=== PATIENT | female | born 1965 | race Caucasian/White ===

== ENCOUNTER 2017-01-10 20:31 | Emergency (ER) | payer MEDICARE, MEDICAID ==
--- NOTE | 2017-01-10 20:51 | ER Document Report ---
ED Medical Screen (RME) - General Stated Complaint: DIFFICULTY BREATHING Time seen by provider: 20:46 Mode of Arrival: Wheelchair Information source: Patient Notes: 51-year-old female presents to ED for a COPD exacerbation with shortness of breath. She says the shortness of breath started 6 or 7 hours ago. She states she's having hard time getting the air out she can get in fine. She states she takes symbicort, spireva, and daliresp for her COPD. A she's had COPD for 6 years. States she smokes 6 cigarettes a day. I have greeted and performed a rapid initial assessment of this patient. A comprehensive ED assessment and evaluation of the patient, analysis of test results and completion of medical decision making process will be conducted by an additional ED providers. TRAVEL OUTSIDE OF THE [place] IN LAST 30 DAYS: No - Related Data Allergies/Adverse Reactions: oxycodone HCl [From Percocet] Allergy (Severe, Verified 01/25/15 16:35) Anaphylaxis propoxyphene napsylate [From Darvocet-N 100] Allergy (Severe, Verified 01/25/15 16:35) Anaphylaxis Past Medical History - Past Medical History Cardiac Medical History: Reports: Hx Hypertension Denies: Hx Coronary Artery Disease, Hx DVT, Hx Heart Attack, Hx Pulmonary Embolism Pulmonary Medical History: Reports: Hx Asthma, Hx Bronchitis, Hx COPD Denies: Hx Pneumonia, Hx Tuberculosis Neurological Medical History: Denies: Hx Cerebrovascular Accident, Hx Seizures GI Medical History: Reports: Hx Gastritis, Hx Gastroesophageal Reflux Disease, Hx Hiatal Hernia Musculoskeltal Medical History: Denies Hx Arthritis, Reports Hx Musculoskeletal Trauma - AC joint avulsion fx Skin Medical History: Reports Hx MRSA Psychiatric Medical History: Reports: Hx Anxiety, Hx Bipolar Disorder, Hx Depression Traumatic Medical History: Reports: Hx Fractures Infectious Medical History: Reports: Hx MRSA Past Surgical History: Reports: Hx Breast Surgery - Breast augmentation, Hx Genitourinary Surgery - Monarc Sling, inter-stem device in bladder, Hx Hysterectomy, Hx Orthopedic Surgery - anterior cervical fusion c5/c6, Hx Tubal Ligation. Denies: Hx Pacemaker - Immunizations Hx Diphtheria, Pertussis, Tetanus Vaccination: Yes - unknown Physical Exam - Vital signs Vitals: Temp Pulse Resp BP Pulse Ox 98.5 F 111 H 18 123/71 97 01/10/17 20:40 01/10/17 20:40 01/10/17 20:40 01/10/17 20:40 01/10/17 20:40 Course - Vital Signs Vital signs: Temp Pulse Resp BP Pulse Ox 98.5 F 111 H 18 123/71 97 01/10/17 20:40 01/10/17 20:40 01/10/17 20:40 01/10/17 20:40 01/10/17 20:40
[2017-01-10] MEDS ORDERED: PREDNISONE 20 MG TABLET PO ONE (20:52)
[2017-01-10] MEDS ORDERED: IPRATROPIUM/ALBUTEROL 0.5-2.5 MG/3 ML AMPUL NEB ONE (20:52)
[2017-01-10] MEDS: ALBUTEROL SULFATE 0.083% NEB 2.5 MG/3 ML AMPUL NEB SCH ×2 (21:15→21:36)
--- NOTE | 2017-01-10 21:29 | ER Document Report ---
ED General - General Chief Complaint: Breathing Difficulty Stated Complaint: DIFFICULTY BREATHING Time seen by provider: 21:15 Mode of Arrival: Wheelchair Information source: Patient Notes: 51-year-old female with 7 hour history of shortness of breath dyspnea on exertion and nonproductive cough. Patient reports last episode of evening difficulty like this was about a year ago. She reports no associated fever, chills, chest pain, abdominal pain, back pain, or syncope. She reports she noted swelling in her legs for the past few days. She denies any history of heart problems. Physical Exam: General: Alert, appears well. HEENT: Normocephalic. Atraumatic. PERRLA. Extraocular movements intact. Oropharynx clear. Neck: Supple. Non-tender. Respiratory: Tachypnea with talking. Scattered wheezes bilaterally with diminished aeration throughout all lung quiroz no accessory muscle use Cardiovascular: Regular rate and rhythm. Abdominal: Normal Inspection. Soft, non-tender. No distension. Normal Bowel Sounds. Back: Non-tender. No deformity or step off. Extremities: Moves all four extremities. Upper extremities: Normal inspection. Non-tender. Normal color. Normal ROM. Normal temperature. Lower extremities: Normal inspection. Non-tender. No edema. Normal color. Normal ROM. Normal temperature. Neurological: Speech clear mentation normal moves all extremities well Psychological: Normal affect. Normal Mood. Skin: Warm. Dry. Normal color. TRAVEL OUTSIDE OF THE [place] IN LAST 30 DAYS: No - Related Data Allergies/Adverse Reactions: oxycodone HCl [From Percocet] Allergy (Severe, Verified 01/25/15 16:35) Anaphylaxis propoxyphene napsylate [From Darvocet-N 100] Allergy (Severe, Verified 01/25/15 16:35) Anaphylaxis Past Medical History - General Information source: Patient - Social History Smoking Status: Current Every Day Smoker Family History: CVA, Hypertension, Malignancy, Other - CHF Patient has suicidal ideation: No Patient has homicidal ideation: No - Past Medical History Cardiac Medical History: Reports: Hx Hypertension Denies: Hx Coronary Artery Disease, Hx DVT, Hx Heart Attack, Hx Pulmonary Embolism Pulmonary Medical History: Reports: Hx Asthma, Hx Bronchitis, Hx COPD Denies: Hx Pneumonia, Hx Tuberculosis Neurological Medical History: Denies: Hx Cerebrovascular Accident, Hx Seizures Renal/ Medical History: Denies: Hx Peritoneal Dialysis GI Medical History: Reports: Hx Gastritis, Hx Gastroesophageal Reflux Disease, Hx Hiatal Hernia Musculoskeltal Medical History: Denies Hx Arthritis, Reports Hx Musculoskeletal Trauma - AC joint avulsion fx Skin Medical History: Reports Hx MRSA Psychiatric Medical History: Reports: Hx Anxiety, Hx Bipolar Disorder, Hx Depression Traumatic Medical History: Reports: Hx Fractures Infectious Medical History: Reports: Hx MRSA Past Surgical History: Reports: Hx Breast Surgery - Breast augmentation, Hx Genitourinary Surgery - Monarc Sling, inter-stem device in bladder, Hx Hysterectomy, Hx Orthopedic Surgery - anterior cervical fusion c5/c6, Hx Tubal Ligation. Denies: Hx Pacemaker - Immunizations Hx Diphtheria, Pertussis, Tetanus Vaccination: Yes - unknown Hx Pneumococcal Vaccination: 07/29/12 Review of Systems - Review of Systems Constitutional: denies: Chills, Diaphoresis EENT: denies: Ear pain, Throat pain Cardiovascular: denies: Chest pain, Syncope, Dizziness, Lightheaded Respiratory: See HPI Gastrointestinal: denies: Abdominal pain, Diarrhea, Nausea, Vomiting Genitourinary: denies: Burning, Dysuria Female Genitourinary: denies: Musculoskeletal: denies: Back pain Skin: denies: Rash Hematologic/Lymphatic: denies: Swollen glands Neurological/Psychological: denies: Weakness, Numbness Physical Exam - Vital signs Vitals: Temp Pulse Resp BP Pulse Ox 98.5 F 111 H 18 123/71 97 01/10/17 20:40 01/10/17 20:40 01/10/17 20:40 01/10/17 20:40 01/10/17 20:40 Course - Re-evaluation Re-evalutation: 01/10/17 22:34 Reevaluation shows markedly improved aeration. Patient's oxygen saturation is 90% on room air she is in no respiratory distress able speak in full sentences and appears clear breath sounds with good aeration bilaterally. Patient reports she does have enough of albuterol nebulizer solution home as well as other medications prescribed by Dr. Kimble her [employer] sales representative. We'll provide steroid Dosepak and Zithromax Z-Octavio and asked her to follow with her [employer] sales representative next week - Vital Signs Vital signs: Temp Pulse Resp BP Pulse Ox 98.5 F 111 H 18 123/71 97 01/10/17 20:40 01/10/17 20:40 01/10/17 20:40 01/10/17 20:40 01/10/17 20:40 - Laboratory Result Diagrams: 01/10/17 21:40 01/10/17 21:40 Laboratory results interpreted by me: 01/10/17 01/10/17 21:40 21:40 WBC 10.6 H RDW 14.3 H Sodium 136.0 L Total Protein 6.2 L - Diagnostic Test Radiology reviewed: Image reviewed, Reports reviewed - EKG Interpretation by Me Additional EKG results interpreted by me: 01/10/17 22:33 EKG reviewed by myself shows sinus tachycardia 111 no acute changes no significant change compared to 12/18/2015 Discharge - Discharge Clinical Impression: Chronic obstructive pulmonary disease with acute exacerbation Condition: Stable Disposition: HOME, SELF-CARE Additional Instructions: Chronic Obstructive Lung Disease You have chronic obstructive lung disease (COPD). The symptoms come from emphysema (damage to small airways, with trapping of air in large sacks in the lung) and chronic bronchitis (repeated infection and damage to larger airways). The cause is almost always cigarette smoking, although dust exposure, asthma, and infections contribute. You should avoid fumes, dust, and smoke (especially tobacco smoke). Your condition will flare from time to time. There is no cure, but the symptoms can be treated. Bronchodilators (asthma medicine) are often helpful. Antibiotics help when infection is present. When shortness of breath is severe, we may prescribe cortisone medication. If medicine doesn't help enough, we can arrange for you to have an oxygen tank at home. Notify your doctor at once if sputum becomes thick, foul, or bloody, if you develop a fever or chest pain, or if your shortness of breath worsens. Prescriptions: Azithromycin [Zithromax 250 mg Tablet] 250 mg PO ASDIR PRN #6 tablet PRN Reason: Methylprednisolone [Medrol Dosepack (4 mg/Tab) 21 Tab/Dosepak] 4 mg PO ASDIR PRN #21 tab.ds.pk PRN Reason: Referrals: MAITE KIMBLE MD [ACTIVE STAFF] - Follow up in 3-5 days
[2017-01-10] MEDS ORDERED: MAGNESIUM SULFATE/D5W 100 ML IV SCH (21:30)
[2017-01-10] MEDS ORDERED: MAGNESIUM SULFATE/D5W 100 ML IV ONE (21:30)
[2017-01-10 21:54] LABS: ABSOLUTE BASOPHILS # (AUTO) 0.1 10^3/uL (0.0-0.2); ABSOLUTE EOSINOPHILS # (AUTO) 0.2 10^3/uL (0.0-0.6); ABSOLUTE LYMPHOCYTES (AUTO) 3.6 10^3/uL (0.5-4.7); ABSOLUTE NEUT (AUTO) 5.7 10^3/uL (1.7-8.2); BASOPHILS % (AUTO) 0.8 % (0-2); EOSINOPHILS % (AUTO) 1.9 % (0-6); HEMOGLOBIN 13.1 g/dL (12.0-15.5); HGB HCT DIFFERENCE 0.3; MEAN CORPUSCULAR HEMOGLOBIN 28.1 pg (27.0-33.4); MEAN CORPUSCULAR HGB CONC 33.5 g/dL (32.0-36.0); MEAN CORPUSCULAR VOLUME 84 fl (80-97); MONOCYTES % (AUTO) 9.4 % (3-13); RED BLOOD COUNT 4.65 10^6/uL (3.72-5.28); RED CELL DISTRIBUTION WIDTH 14.3 % (11.5-14.0); SEGMENTED NEUTROPHILS % (AUTO) 53.9 % (42-78); WHITE BLOOD COUNT 10.6 10^3/uL (4.0-10.5)
[2017-01-10 22:14] LABS: ALANINE AMINOTRANSFERASE 22 U/L (9-52); ALKALINE PHOSPHATASE 87 U/L (38-126); ANION GAP 9 (5-19); ASPARTATE AMINO TRANSFERASE 19 U/L (14-36); BILIRUBIN,TOTAL 0.4 mg/dL (0.2-1.3); BLOOD UREA NITROGEN 10 mg/dL (7-20); CALCIUM 9.6 mg/dL (8.4-10.2); CARBON DIOXIDE 24 mmol/L (22-30); CHLORIDE 103 mmol/L (98-107); CREATININE RESULT 0.55 mg/dL (0.52-1.25); GLUCOSE 102 mg/dL (75-110); POTASSIUM 3.9 mmol/L (3.6-5.0); TOTAL PROTEIN 6.2 g/dL (6.3-8.2)
[2017-01-10 23:56] VITALS: BP 130/86
--- NOTE | 2017-01-11 11:18 | EKG REPORT ---
SEVERITY:- BORDERLINE ECG - SINUS TACHYCARDIA RIGHT AXIS DEVIATION BORDERLINE PROLONGED QT INTERVAL : Confirmed by: Marian Alejandre 11-Jan-2017 11:17:41
== END 2017-01-10 23:45 | disposition home or self-care (01) ==
LOC: ER 20:31
DX: J44.1 Chronic obstructive pulmonary disease with (acute) exacerbation (principal); J45.909 Unspecified asthma, uncomplicated; R06.02 Shortness of breath; R05 Cough; R00.0 Tachycardia, unspecified; M79.89 Other specified soft tissue disorders; F17.200 Nicotine dependence, unspecified, uncomplicated; I10 Essential (primary) hypertension; Z87.892 Personal history of anaphylaxis; Z88.5 Allergy status to narcotic agent; Z86.14 Personal history of Methicillin resistant Staphylococcus aureus infection
CPT/HCPCS: 93005; 94640 ×2; 99285; 96365; 36415; 85025; 80053; 83880; 71020; 93010; J3475; A9270 ×3; J7512; J7620

== ENCOUNTER → 2017-01-30 | Outpatient (CLI) | payer MEDICARE, MEDICAID | LOC: OD 08:30 | PROVIDERS: ATTEND Physician Assistant | DX: M25.551 Pain in right hip (principal) ==

== ENCOUNTER → 2017-05-08 | Outpatient (CLI) | payer MEDICARE, MEDICAID ==
--- NOTE | 2017-05-08 12:37 | RADIOLOGY REPORT (SQ) ---
EXAM DESCRIPTION: CHEST PA/LATERAL COMPLETED DATE/TIME: 05/08/2017 12:26 pm REASON FOR STUDY: PAIN IN THROAT COMPARISON: 01/10/2017 EXAM PARAMETERS: NUMBER OF VIEWS: two views TECHNIQUE: Digital Frontal and Lateral radiographic views of the chest acquired. RADIATION DOSE: NA LIMITATIONS: none FINDINGS: LUNGS AND PLEURA: The lungs are hyperexpanded with flattening of the diaphragms. There is no pulmonary infiltrate or pleural effusion. There is no mass. MEDIASTINUM AND HILAR STRUCTURES: No masses or contour abnormalities. HEART AND VASCULAR STRUCTURES: Heart normal size. No evidence for failure. BONES: No acute findings. HARDWARE: None in the chest. OTHER: No other significant finding. IMPRESSION: There are chronic lung changes with no acute cardiopulmonary disease. TECHNICAL DOCUMENTATION: JOB ID: [id number] [employer]- All Rights Reserved
== END ==
LOC: OD 12:14
PROVIDERS: ATTEND Physician Assistant
DX: R07.0 Pain in throat (principal)
CPT/HCPCS: 71020

== ENCOUNTER → 2017-05-24 | Outpatient (CLI) | payer MEDICARE, MEDICAID ==
--- NOTE | 2017-05-24 14:23 | RADIOLOGY REPORT (SQ) ---
EXAM DESCRIPTION: CHEST PA/LATERAL COMPLETED DATE/TIME: 05/24/2017 1:38 pm REASON FOR STUDY: CHRONIC OBSTRUCTIVE PULMONARY DISEASE, UNSPECIFIED J44.9 CHRONIC OBSTRUCTIVE PULM ONARY DISEASE, UNSPECIFIED COMPARISON: 05/08/2017 NUMBER OF VIEWS: Two view. TECHNIQUE: Frontal and lateral radiographic views of the chest acquired. LIMITATIONS: None. FINDINGS: LUNGS AND PLEURA: No opacities, masses or pneumothorax. No pleural effusion. Attenuated bl ood vessels and flattened addy-diaphragms. MEDIASTINUM AND HILAR STRUCTURES: No masses. No contour abnormalities. HEART AND VASCULAR STRUCTURES: Heart normal in size and contour. No evidence for failure. BONES: No acute findings. HARDWARE: None in the chest. OTHER: No other significant finding. IMPRESSION: COPD. NO ACUTE RADIOGRAPHIC FINDING IN THE CHEST. TECHNICAL DOCUMENTATION: JOB ID: [id number] [place]- All Rights Reserved
== END ==
LOC: OD 13:25
PROVIDERS: ATTEND Physician Assistant
DX: J44.9 Chronic obstructive pulmonary disease, unspecified (principal)
CPT/HCPCS: 71020

== ENCOUNTER → 2017-11-27 | Outpatient (CLI) | payer MEDICARE, MEDICAID ==
--- NOTE | 2017-11-27 17:08 | WOMENS IMAGING REPORT ---
EXAM DESCRIPTION: 3D SCREENING MAMMO BILAT COMPLETED DATE/TIME: 11/27/2017 2:57 pm REASON FOR STUDY: ROUTINE SCREENING; Z12.31 Z12.31 ENCNTR SCREEN MAMMOGRAM FOR MALIGNANT NEOPLASM O F MANUEL COMPARISON: 2014 TECHNIQUE: Standard craniocaudal and mediolateral oblique views of each breast recorded using digita l acquisition and breast tomosynthesis. Additional "push-back craniocaudal and mediolateral oblique images acquired. LIMITATIONS: None. FINDINGS: IMPLANTS: Bilateral subpectoral implants. Findings present which are benign by mammographic criteria. No suspicious masses, calcifications or a rchitectural distortion. Read with the assistance of CAD. .[facility] - R2 [employer] Version 1.3 .[facility] - R2 [employer] Version 1.3 .[facility] - R2 [employer] Version 2.4 .[facility] - R2 Cenova Version 2.4 .[facility] - R2 [employer] Version 9.2 Benign mammographic findings may include one or more of the following: Smooth masses, popcorn/rim/co arse calcifications, asymmetries, post-procedure changes, and lesions with long-standing stability. IMPRESSION: BENIGN MAMMOGRAPHIC FINDINGS. BIRADS 2 BREAST DENSITY: b. There are scattered areas of fibroglandular density. BIRAD: 2 BENIGN FINDING(S) RECOMMENDATION: ROUTINE SCREENING COMMENT: The patient has been notified of the results by letter per MQSA requirements. Additional no tification policies are in place for contacting patient with suspicious or incomplete findings. Quality ID #[id number]: The [employer] recommends an annual screening mammogram for women aged 40 years or over. This facility utilizes a reminder system to ensure that all patients receive reminder letters, and/or direct phone calls for appointments. This includes reminders for routine scr eening mammograms, diagnostic mammograms, or other Breast Imaging Interventions when appropriate. Th is patient will be placed in the appropriate reminder system. The [employer] (ACR) has developed recommendations for screening MRI of the breast s in certain patient populations, to be used in conjunction with mammography. Breast MRI surveillanc e may be appropriate for women with more than 20% lifetime risk of developing breast cancer as deter mined by genetic testing, significant family history of the disease, or history of mantle radiation f or Hodgkins Disease. ACR Practice Guidelines 2008. DBT Technology DBT is a type of tomographic mammography. With conventional mammography, overlapping breast tissue ma y make lesions difficult to detect, even with good compression. DBT uses an x-ray tube that rotates a round the breast, taking images at different angles. These images are then combined to create thin sl ices of the breast that the radiologist can view as a 3D reconstruction. The [employer] unit can perform full-field digital mammograms (2D imaging); or DBT (3D imaging); or both, in a combination mode that quickly performs both the mammogram and the tomosynthesis scan while the breast is still compressed. RS 6045F: Fluoroscopic imaging is not utilized for breast tomosynthesis. TECHNICAL DOCUMENTATION: FINDING NUMBER: (1) ASSESSMENT: (1) JOB ID: [id number]- All Rights Reserved
== END ==
LOC: WI 14:38
PROVIDERS: ATTEND Physician Assistant
DX: Z12.31 Encounter for screening mammogram for malignant neoplasm of breast (principal)
CPT/HCPCS: 77063; 77067

== ENCOUNTER → 2017-12-17 | Outpatient (CLI) | payer MEDICARE, MEDICAID ==
--- NOTE | 2017-12-17 16:49 | RADIOLOGY REPORT (SQ) ---
EXAM DESCRIPTION: U/S THYROID/SFT TISS HD NECK COMPLETED DATE/TIME: 12/17/2017 10:47 am REASON FOR STUDY: ENGLARGED LYMPH NODES R59.9 ENLARGED LYMPH NODES, UNSPECIFIED COMPARISON: None. TECHNIQUE: Dynamic and static concepcion-scale images acquired of the thyroid gland. Selected additional c olor/power Doppler images recorded. All images stored to PACS. LIMITATIONS: None. FINDINGS: The thyroid gland is diffusely heterogeneous, with multiple mixed echogenicity nodules maria dolores aterally. Right lobe thyroid 4.6 cm in greatest length, with a 2.7 x 1.5 cm complex cystic and solid lesion in the lower pole. Left lobe thyroid measures 4.7 cm in greatest length, with multiple mixed cystic and solid nodules on the lower pole gland as follows: 1.9 x 1.2 cm 7 x 4 mm 8 x 4 mm 8 x 5 mm IMPRESSION: Normal size thyroid gland with multiple mixed cystic and solid nodules as above. No worrisome neck adenopathy. TECHNICAL DOCUMENTATION: JOB ID: [id number] [employer]- All Rights Reserved
== END ==
LOC: RAD 09:19
PROVIDERS: ATTEND Physician Assistant
DX: R59.9 Enlarged lymph nodes, unspecified (principal)
CPT/HCPCS: 76536

== ENCOUNTER → 2017-12-20 | Outpatient (CLI) | payer MEDICARE, MEDICAID | LOC: OD 13:45 | PROVIDERS: ATTEND Internal Medicine Pulmonary Disease | DX: Z53.9 Procedure and treatment not carried out, unspecified reason (principal) ==

== ENCOUNTER 2018-11-12 13:56 | Emergency (ER) | payer MEDICARE, MEDICAID ==
[2018-11-12] MEDS ORDERED: NYSTATIN 500000 UNIT/5 ML UDCUP PO ONE (14:36)
[2018-11-12] MEDS ORDERED: DEXAMETHASONE SOD PHOS INJ 10 MG/1 ML VIAL IV ONE (14:37)
[2018-11-12] MEDS ORDERED: LORAZEPAM INJ 2 MG/1 ML VIAL IV ONE (14:37)
--- NOTE | 2018-11-12 15:31 | ER Document Report ---
ED General - General Chief Complaint: Difficulty Swallowing Stated Complaint: POSSIBLE CHOKING Time Seen by Provider: 11/12/18 14:08 Notes: Patient is a 53-year-old female with recent throat cancer surgery and throat reconstruction that presents to the emergency department for chief complaint of difficulty swallowing and choking sensation. Patient states that she had surgery on October 15, 2018, where she had radical neck dissection, and reconstruction of her left palate. She states she is been having trouble with a sensation of feeling like she is choking, she did go to a separate institution, where she was observed, and left yesterday, AGAINST MEDICAL ADVICE, she was receiving steroids and antibiotics, she thought the steroids were helping, but she was getting frustrated with the care she was getting there so she left and came here. She had her surgery done at [facility], she had an appointment with her surgeon today, but states she could not make it so she decided to come to the emergency department. She denies having any pain swelling, denies coughing after drinking or eating, she feels that the left side of her neck is stiff, and it is causing her discomfort and feeling like things are closing. She states she is afraid to eat or drink, but denies that it causes any pain. Past Medical History: Throat cancer status post radical neck dissection Past Surgical History: Radical neck dissection, and reconstruction Social History: Admits to smoking cigarettes daily, denies alcohol or drug use. Family History: Reviewed and noncontributory for presenting illness Allergies: Reviewed, see documented allergy list. REVIEW OF SYSTEMS: Other than noted above, the 12 point review of systems was reviewed with the patient and were negative, all pertinent findings are included in the HPI. PHYSICAL EXAMINATION: Vital signs reviewed, nursing noted reviewed. GENERAL: Chronically ill-appearing female, appears rather anxious HEAD: Atraumatic, normocephalic. EYES: Eyes appear normal, extraocular movements intact, sclera anicteric, conjunctiva are normal. ENT: nares patent, oropharynx clear without exudates. Moist mucous membranes. There are sutures present, but no evidence of infection or purulent drainage in the left posterior soft palate, there is some white patches, consistent with oral candidiasis. NECK: Normal range of motion, surgical incisional scars, along the lower lip line, and left neck, no tenderness to palpation, no lymphadenopathy. LUNGS: Breath sounds clear to auscultation bilaterally and equal. No wheezes rales or rhonchi. HEART: Regular rate and rhythm without murmurs ABDOMEN: Soft, nontender, normoactive bowel sounds. No rebound, guarding, or rigidity. No masses appreciated. EXTREMITIES: Nontender, good range of motion, no pitting or edema. NEUROLOGICAL: No focal neurological deficits. Moves all extremities spontaneously Motor and sensory grossly intact on exam. PSYCH: Patient appears anxious on exam. SKIN: Warm, Dry, normal turgor, no rashes or lesions noted on exposed skin TRAVEL OUTSIDE OF THE [place] IN LAST 30 DAYS: No - Related Data Allergies/Adverse Reactions: oxycodone HCl [From Percocet] Allergy (Severe, Verified 08/07/17 09:16) Anaphylaxis propoxyphene napsylate [From Darvocet-N 100] Allergy (Severe, Verified 08/07/17 09:16) Anaphylaxis Past Medical History - Social History Smoking Status: Unknown if Ever Smoked Chew tobacco use (# tins/day): No Frequency of alcohol use: None Drug Abuse: None Family History: CVA, Hypertension, Malignancy, Other - CHF Patient has suicidal ideation: No Patient has homicidal ideation: No - Past Medical History Cardiac Medical History: Reports: Hx Hypertension Denies: Hx Coronary Artery Disease, Hx DVT, Hx Heart Attack, Hx Pulmonary Embolism Pulmonary Medical History: Reports: Hx Asthma, Hx Bronchitis, Hx COPD Denies: Hx Pneumonia, Hx Tuberculosis Neurological Medical History: Denies: Hx Cerebrovascular Accident, Hx Seizures Renal/ Medical History: Denies: Hx Peritoneal Dialysis GI Medical History: Reports: Hx Gastritis, Hx Gastroesophageal Reflux Disease, Hx Hiatal Hernia Musculoskeletal Medical History: Denies Hx Arthritis, Reports Hx Musculoskeletal Trauma - AC joint avulsion fx Skin Medical History: Reports Hx MRSA Psychiatric Medical History: Reports: Hx Anxiety, Hx Bipolar Disorder, Hx Depression Traumatic Medical History: Reports: Hx Fractures Infectious Medical History: Reports: Hx MRSA Past Surgical History: Reports: Hx Breast Surgery - Breast augmentation, Hx Genitourinary Surgery - Monarc Sling, inter-stem device in bladder, Hx Hysterectomy, Hx Orthopedic Surgery - anterior cervical fusion c5/c6, Hx Tubal Ligation. Denies: Hx Pacemaker - Immunizations Hx Diphtheria, Pertussis, Tetanus Vaccination: Yes - unknown Hx Pneumococcal Vaccination: 07/29/12 Physical Exam - Vital signs Vitals: Resp 21 H 11/12/18 14:14 Course - Re-evaluation Re-evalutation: Patient seen and examined vital signs reviewed. Laboratory data and imaging were ordered as appropriate for the patient's presenting symptoms and complaint, with consideration of any critical or life threatening conditions that may be associated with their obtained history and exam as noted above. Patient was treated with IV Decadron 10 mg, and oral nystatin solution, she was also given a dose of Ativan to help with her nerves. Results were reviewed when available and demonstrated CT imaging that demonstrated postsurgical changes, but no evidence of laryngeal stenosis, or abscess The patient was re-evaluated and was stable, discussed the patient, that she will need speech therapy, and encouraged her to follow-up with both her primary care as well as the ear nose and throat physician that performed her surgery, and that this will be an ongoing process for her, advised to follow-up with the primary as well, she may have oral candidiasis, she was given a dose of nystatin today, but ultimately will need follow-up for this as well. Evaluation was most consistent with dysphagia. Results were discussed with the patient at this point, after careful consideration I feel that that patient can be discharged from the emergency department, the patient was educated treatments and reasons to return to the emergency department based on their presumed diagnosis as noted above, they were advised to followup with a primary care physician in 2-3 days. Patient was agreeable to plan of care. *Note is created using voice recognition software and may contain spelling, syntax or grammatical errors. Soft Tissue Neck CT 11/12/18 14:36 IMPRESSION: Postsurgical changes left submandibular space. Asymmetry left posterior pharyngeal wall without evidence of significant airway obstruction. No abscess. - Vital Signs Vital signs: Temp Pulse Resp BP Pulse Ox 18 152/85 H 98 11/12/18 15:02 11/12/18 15:02 11/12/18 15:02 Discharge - Discharge Clinical Impression: Dysphagia Qualifiers: Dysphagia type: unspecified Qualified Code(s): R13.10 - Dysphagia, unspecified Condition: Stable Disposition: HOME, SELF-CARE Additional Instructions: Please follow-up with your surgeon at [facility], I want to reassure you, that your imaging looks good, there is no evidence that your trachea is narrowing, and that your windpipe is open. If you are having coughing, or choking episodes, after eating or drinking, and feel like he cannot catch her breath, please return to the emergency department. It will take time for you to learn how to re-swallow, as you have had major reconstructive therapy to your throat muscles. Please follow-up with the ear nose and throat doctor at [facility], they may be able to help set you up with speech therapy if needed. You should also follow-up with your primary care physician Dr. Jarvis who may be able to help assist with this locally. Referrals: SAYRA JARVIS MD [Primary Care Provider] - Follow up in 3-5 days
[2018-11-12 15:48] VITALS: BP 152/85
--- NOTE | 2018-11-12 15:55 | RADIOLOGY REPORT (SQ) ---
EXAM DESCRIPTION: CT SOFT TISSUE NECK WITH COMPLETED DATE/TIME: 11/12/2018 3:42 pm REASON FOR STUDY: trouble swallowing, recent pharyngeal reconstructi COMPARISON: None. TECHNIQUE: Post IV contrasted scanning from skull base through lung apices with review of bone, soft tissue and lung windows. Reconstructed coronal and sagittal MPR images reviewed. All images stored on PACS. All CT scanners at this facility use dose modulation, iterative reconstruction, and/or weight based d osing when appropriate to reduce radiation dose to as low as reasonably achievable (ALARA). [facility]: Dose Right [facility]: CareDose [facility]: Dose Right [facility]: Teradose 4D [facility]: [employer] CONTRAST TYPE AND DOSE: contrast/concentration: Isovue 350.00 mg/ml; Total Contrast Delivered: 75.0 ml; Total Saline Delivered: 55.0 ml RENAL FUNCTION: Not available. RADIATION DOSE: CT Rad equipment meets quality standard of care and radiation dose reduction techniq ues were employed. CTDIvol: 6.3 mGy. DLP: 203 mGy-cm. . LIMITATIONS: None. FINDINGS: SKULL BASE: Intact. MAJOR SALIVARY GLANDS: Multiple clips left submandibular space. Normal left submandibular gland is n ot identified. LYMPHADENOPATHY: No adenopathy. MUCOSAL MASSES OR ASYMMETRY: Asymmetry along the left posterior nasopharyngeal wall and floor of mout h. LARYNX/CORDS: No abnormal findings. VASCULAR STRUCTURES: The major vessels are patent. LUNG APICES: Clear. BONES: Lower cervical fusion. THYROID: Small bilateral colloid cysts. PARANASAL SINUSES: Clear. OTHER: No other significant finding. IMPRESSION: Postsurgical changes left submandibular space. Asymmetry left posterior pharyngeal wall without evidence of significant airway obstruction. No abscess. TECHNICAL DOCUMENTATION: JOB ID: [id number] Quality ID # [id number]: Final reports with documentation of one or more dose reduction techniques (e.g., Au tomated exposure control, adjustment of the mA and/or kV according to patient size, use of iterative reconstruction technique) 2010 [employer]- All Rights Reserved Reading location - IP/workstation name: [email or web address]
== END 2018-11-12 16:40 | disposition home or self-care (01) ==
LOC: ER 13:56
DX: R13.10 Dysphagia, unspecified (principal); Z98.890 Other specified postprocedural states; F17.210 Nicotine dependence, cigarettes, uncomplicated; I10 Essential (primary) hypertension; J44.9 Chronic obstructive pulmonary disease, unspecified
CPT/HCPCS: 99284; 96374; 96375; 70491; J2060; J1100

== ENCOUNTER → 2018-11-25 | Outpatient (CLI) | payer MEDICARE, MEDICAID ==
[2018-11-25 12:55] LABS: HEMATOCRIT 38.3 % (36.0-47.0); HEMOGLOBIN 12.6 g/dL (12.0-15.5); MEAN CORPUSCULAR HEMOGLOBIN 27.8 pg (27.0-33.4); MEAN CORPUSCULAR HGB CONC 32.9 g/dL (32.0-36.0); MEAN CORPUSCULAR VOLUME 85 fl (80-97); PLATELET COUNT 344 10^3/uL (150-450); RED BLOOD COUNT 4.53 10^6/uL (3.72-5.28); RED CELL DISTRIBUTION WIDTH 15.4 % (11.5-14.0); WHITE BLOOD COUNT 12.4 10^3/uL (4.0-10.5)
--- NOTE | 2018-11-25 12:57 | RADIOLOGY REPORT (SQ) ---
EXAM DESCRIPTION: FOREARM RIGHT COMPLETED DATE/TIME: 11/25/2018 12:13 pm REASON FOR STUDY: UNSPECIFIED OPEN WOUND OF RIGHT FOREARM, INITIAL ENCOUNTER Z52.10 SKIN DONOR, UNS PECIFIED S51.801A UNSPECIFIED OPEN WOUND OF RIGHT FOREARM, INITIAL EN COMPARISON: None. NUMBER OF VIEWS: Two views. TECHNIQUE: Two radiographic images acquired of the right forearm, including elbow and wrist in at le ast one projection. LIMITATIONS: None. FINDINGS: MINERALIZATION: Normal. BONES: No acute fracture. No worrisome bone lesions. SOFT TISSUES: Anterior soft tissue deformity in the distal forearm. Multiple surgical clips. No jillian picious radiopaque foreign object or noticeable soft tissue gas. OTHER: No other significant finding. IMPRESSION: SOFT TISSUE DEFORMITY WITH MULTIPLE SURGICAL CLIPS. NO OTHER SIGNIFICANT FINDINGS. NO BONY FINDINGS. TECHNICAL DOCUMENTATION: JOB ID: [id number] [employer]- All Rights Reserved Reading location - IP/workstation name: [email or web address]
[2018-11-25 13:14] LABS: ALANINE AMINOTRANSFERASE 26 U/L (9-52); ALBUMIN 4.3 g/dL (3.5-5.0); ALKALINE PHOSPHATASE 84 U/L (38-126); ANION GAP 5 (5-19); ASPARTATE AMINO TRANSFERASE 21 U/L (14-36); BILIRUBIN,DIRECT 0.1 mg/dL (0.0-0.4); BILIRUBIN,TOTAL 0.4 mg/dL (0.2-1.3); BLOOD UREA NITROGEN 20 mg/dL (7-20); C-REACTIVE PROTEIN 9.4 mg/L (<10.0); CALCIUM 9.4 mg/dL (8.4-10.2); CARBON DIOXIDE 38 mmol/L (22-30); CHLORIDE 97 mmol/L (98-107); GLUCOSE 101 mg/dL (75-110); POTASSIUM 3.7 mmol/L (3.6-5.0); SODIUM 139.6 mmol/L (137-145); TOTAL PROTEIN 6.5 g/dL (6.3-8.2)
[2018-11-25 13:29] LABS: ERYTHROCYTE SEDIMENTATION RATE 8 mm/hr (0-30)
[2018-11-25 13:42] LABS: ABSOLUTE LYMPHOCYTES# (MANUAL) 0.5 10^3/uL (0.5-4.7); ABSOLUTE NEUTROPHILS# (MANUAL) 11.9 10^3/uL (1.7-8.2); BASOPHILS % (MANUAL) 0 % (0-2); EOSINOPHILS % (MANUAL) 0 % (0-6); LYMPHOCYTES % (MANUAL) 4 % (13-45); MONOCYTES % (MANUAL) 0 % (3-13); SEGMENTED NEUTROPHILS % (MAN) 96 % (42-78); TOTAL CELLS COUNTED 100
[2018-11-25 13:43] LABS: ANISOCYTOSIS SLIGHT
[2018-11-25 13:44] LABS: PLATELET COMMENT ADEQUATE
== END ==
LOC: WC 11:45
PROVIDERS: ATTEND Plastic Surgery
DX: Z52.10 Skin donor, unspecified (principal); S51.801A Unspecified open wound of right forearm, initial encounter; X58.XXXA Exposure to other specified factors, initial encounter
CPT/HCPCS: 36415; 80053; 85025; 85652; 86140

== ENCOUNTER → 2019-10-01 | Outpatient (CLI) | payer MEDICARE, MEDICAID ==
--- NOTE | 2019-10-01 19:24 | WOMENS IMAGING REPORT ---
EXAM DESCRIPTION: 3D SCREENING MAMMO BILAT COMPLETED DATE/TIME: 10/01/2019 12:49 pm REASON FOR STUDY: Z12.31 SCREENING MAMMO Z12.31 ENCNTR SCREEN MAMMOGRAM FOR MALIGNANT NEOPLASM OF B RE COMPARISON: Multiple since 2012 EXAM PARAMETERS: Standard craniocaudal and mediolateral oblique views of each breast recorded using digital acquisition and breast tomosynthesis. Additional "push-back craniocaudal and mediolateral ob lique images acquired. Read with the assistance of CAD. .FORMERLY [facility], [facility] - R2 [employer] Version 9.2 LIMITATIONS: None. FINDINGS: IMPLANTS: Bilateral subpectoral implants. Findings present which are benign by mammographic criteria. No suspicious masses, calcifications or a rchitectural distortion. Benign mammographic findings may include one or more of the following: Smooth masses, popcorn/rim/co arse calcifications, asymmetries, post-procedure changes, and lesions with long-standing stability. IMPRESSION: BENIGN MAMMOGRAPHIC FINDINGS. BIRADS 2 BREAST DENSITY: b. There are scattered areas of fibroglandular density. BIRAD: ASSESSMENT: 2 BENIGN FINDING(S) RECOMMENDATION: ROUTINE SCREENING Please continue yearly bilateral screening mammography/tomosynthesis in September 2020 COMMENT: The patient has been notified of the results by letter per [place] requirements. Additional no tification policies are in place for contacting patient with suspicious or incomplete findings. Quality ID #[id number]: The [employer] recommends an annual screening mammogram for women aged 40 years or over. This facility utilizes a reminder system to ensure that all patients receive reminder letters, and/or direct phone calls for appointments. This includes reminders for routine scr eening mammograms, diagnostic mammograms, or other Breast Imaging Interventions when appropriate. Th is patient will be placed in the appropriate reminder system. TECHNICAL DOCUMENTATION: FINDING NUMBER: (1) ASSESSMENT: (1) JOB ID: [id number] [employer]- All Rights Reserved Reading location - IP/workstation name: [email or web address]
== END ==
LOC: WI 12:25
PROVIDERS: ATTEND Physician Assistant
DX: Z12.31 Encounter for screening mammogram for malignant neoplasm of breast (principal)
CPT/HCPCS: 77063; 77067

== ENCOUNTER 2020-06-29 07:58 | Emergency (ER) | payer MEDICARE, MEDICAID ==
[2020-06-29] MEDS ORDERED: LORAZEPAM INJ 2 MG/1 ML VIAL IV ONE (09:02)
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
[2020-06-29 09:53] LABS: HEMATOCRIT 43.8 % (36.0-47.0); HEMOGLOBIN 14.8 g/dL (12.0-15.5); MEAN CORPUSCULAR HEMOGLOBIN 28.4 pg (27.0-33.4); MEAN CORPUSCULAR HGB CONC 33.7 g/dL (32.0-36.0); MEAN CORPUSCULAR VOLUME 84 fl (80-97); RED BLOOD COUNT 5.19 10^6/uL (3.72-5.28); RED CELL DISTRIBUTION WIDTH 14.9 % (11.5-14.0); WHITE BLOOD COUNT 7.8 10^3/uL (4.0-10.5)
[2020-06-29 10:08] LABS: ALBUMIN 4.7 g/dL (3.5-5.0); ALKALINE PHOSPHATASE 88 U/L (38-126); ANION GAP 8 (5-19); ASPARTATE AMINO TRANSFERASE 26 U/L (14-36); BILIRUBIN,DIRECT 0.3 mg/dL (0.0-0.4); BILIRUBIN,TOTAL 0.6 mg/dL (0.2-1.3); BLOOD UREA NITROGEN 15 mg/dL (7-20); CALCIUM 10.3 mg/dL (8.4-10.2); CARBON DIOXIDE 27 mmol/L (22-30); CHLORIDE 108 mmol/L (98-107); GLUCOSE 102 mg/dL (75-110); POTASSIUM 4.2 mmol/L (3.6-5.0); TOTAL PROTEIN 7.3 g/dL (6.3-8.2)
[2020-06-29 10:11] LABS: ACETAMINOPHEN < 10 ug/mL (10-30); ALCOHOL < 10 mg/dL (NONE DETECTED); SALICYLATE < 1.0 mg/dL (2.0-20.0)
[2020-06-29 10:26] VITALS: BP 159/100
[2020-06-29 11:02] LABS: ABSOLUTE LYMPHOCYTES# (MANUAL) 1.7 10^3/uL (0.5-4.7); ABSOLUTE MONOCYTES # (MANUAL) 0.5 10^3/uL (0.1-1.4); BASOPHILS % (MANUAL) 0 % (0-2); EOSINOPHILS % (MANUAL) 0 % (0-6); LYMPHOCYTES % (MANUAL) 22 % (13-45); MONOCYTES % (MANUAL) 7 % (3-13); SEGMENTED NEUTROPHILS % (MAN) 71 % (42-78); TOTAL CELLS COUNTED 100
[2020-06-29 11:04] LABS: ANISOCYTOSIS SLIGHT
[2020-06-29 11:05] LABS: PLATELET CLUMPS PRESENT; PLATELET COMMENT DECREASED
[2020-06-29 11:06] LABS: PLATELET COUNT 141 10^3/uL (150-450)
--- NOTE | 2020-06-29 12:57 | EKG REPORT ---
SEVERITY:- ABNORMAL ECG - SINUS RHYTHM BIATRIAL ABNORMALITIES CONSIDER RIGHT VENTRICULAR HYPERTROPHY : Confirmed by: Nahum Mendoza MD 29-Jun-2020 12:56:21
== END 2020-06-29 10:30 | disposition home or self-care (01) ==
LOC: ER 07:58
DX: F41.9 Anxiety disorder, unspecified (principal); R09.81 Nasal congestion; F17.200 Nicotine dependence, unspecified, uncomplicated; I10 Essential (primary) hypertension; J44.9 Chronic obstructive pulmonary disease, unspecified; Z87.892 Personal history of anaphylaxis; Z88.6 Allergy status to analgesic agent; Z88.5 Allergy status to narcotic agent
CPT/HCPCS: 93005; 99284; 96374; 36415; 80307 ×3; 85025; 80053; 93010; J2060